=== PATIENT | male | born 1970 | race Caucasian/White ===

== ENCOUNTER → 2018-07-17 | Day surgery (SDC) | payer OTHER ==
[~2018-07-17] MED LIST: IV RINGERS,LACTATED 1000ML 1,000 ML IV SCH; LIDOCAINE 1% PF 2 ML VIAL. ID PRN; MIDAZOLAM HCL/PF 2 MG/2 ML VIAL. IV PRN; PROPOFOL 40 ML IV ONE; fentaNYL PF VIAL 100 MCG/2 ML VIAL IV PRN
[2018-07-17 13:37] VITALS: BP 113/65
--- NOTE | 2018-07-18 14:10 | PATHOLOGY ---
[facility] Accession Number: [id number] . 01 Material submitted: . CECUM POLYP . 01 Clinical history: . Screening . 02 Diagnosis: Colon biopsy, cecal polyp: - Tubular adenoma. [facility]/07/18/2018 . 02 Comment: There is no high-grade dysplasia or evidence of malignancy. (JPM:[facility] 07/18/2018) . 02 Electronically signed: . Vikram Pastrana MD, Pathologist NPI- [id number] . 01 Gross description: . Received in formalin labeled "Deloresb, Manfred, cecum polyp," are 2 segments of flood soft tissue measuring 0.9 x 0.3 x 0.3 cm in aggregate dimensions and ranging from 0.4 to 0.5 cm in maximum dimension. The specimen is submitted entirely in cassette A1. ([facility]; 07/17/2018) TOB/TOB . 02 Pathologist provided ICD-10: D12.0 . 02 CPT . 260357 Specimen Comment: A courtesy copy of this report has been sent to Specimen Comment: [phone], . Specimen Comment: Report sent to / DR PEREZ Specimen Comment: A duplicate report has been generated due to demographic updates. Performed at: 01 [facility] [address], [place], [place] [id number] MD Giovanni Martinez MD Phone: [phone] Performed at: 02 [facility] [address] [place], [place] [id number] MD Vikram Pastrana MD Phone: [phone]
== END | disposition home or self-care (01) ==
LOC: SURG 11:38
PROVIDERS: ATTEND Internal Medicine Gastroenterology
DX: Z12.11 Encounter for screening for malignant neoplasm of colon (principal); D12.0 Benign neoplasm of cecum; K57.30 Diverticulosis of large intestine without perforation or abscess without bleeding; K64.0 First degree hemorrhoids; Z79.899 Other long term (current) drug therapy; Z72.89 Other problems related to lifestyle; Z98.890 Other specified postprocedural states
CPT/HCPCS: 45385; 88305; J2704; 45380